=== PATIENT | male | born 1975 | race Two or more races ===

== ENCOUNTER 2022-05-12 18:42 | Emergency (ER) | payer OTHER ==
[2022-05-12 18:54] VITALS: BP 138/79; PULSE 85; RESP 18; TEMP 98.1; BMI 25.8
[2022-05-12] MEDS ORDERED: ACETAMINOPHEN 500 MG TABLET (FP) PO ONE (19:59)
[2022-05-12] MEDS ORDERED: ACETAMINOPHEN 325 MG TABLET (FP) ONE (20:06)
[2022-05-12 20:30] LABS: BASO % 0.8 % (0-2.0); HEMATOCRIT 43.3 % (35.4-49); HEMOGLOBIN 14.5 GM/dL (11.7-16.9); LYMPH % 27.3 % (8-40); MCH 29.6 pg (25.7-33.7); MCHC 33.4 g/dl (32.0-35.9); MEAN CELL VOLUME 88.5 fl (80-96); MEAN PLT VOLUME 8.3 fl (7.5-11.1); MONO % 10.1 % (3.8-10.2); NEUT % 59.8 % (42.8-82.8); PLATELET COUNT 290 10^3/uL (134-434); RBC 4.89 M/mm3 (4.00-5.60); RDW 13.3 % (11.9-15.9); WHITE BLOOD COUNT 7.2 K/mm3 (4.0-10.0)
[2022-05-12 20:58] LABS: CALCIUM 9.5 mg/dL (8.5-10.1)
[2022-05-12 20:59] LABS: BLOOD UREA NITROGEN 17.9 mg/dL (7-18)
[2022-05-12 21:01] LABS: CREATININE 0.9 mg/dL (0.55-1.3)
[2022-05-12 21:03] LABS: BILIRUBIN,TOTAL 0.3 mg/dL (0.2-1)
== END 2022-05-12 21:59 | disposition home or self-care (01) ==
LOC: JER 18:42
DX: R07.9 Chest pain, unspecified (principal)
CPT/HCPCS: 36415; 71046-TC-FY; 80053; 83690; 84484; 85025; 93005; 93010; 99285-25

== ENCOUNTER 2022-10-09 21:19 | Emergency (ER) | payer OTHER ==
[2022-10-09 21:25] VITALS: BP 114/79; PULSE 90; RESP 18; TEMP 98.4; BMI 25.8
[2022-10-09] MEDS ORDERED: ACETAMINOPHEN 325 MG TABLET (FP) PO ONE (22:13)
[2022-10-09] MEDS ORDERED: ACETAMINOPHEN 325 MG TABLET (FP) ONE (22:35)
== END 2022-10-09 23:28 | disposition home or self-care (01) ==
LOC: JER 21:19
DX: S89.82XA Other specified injuries of left lower leg, initial encounter (principal); M25.562 Pain in left knee; X50.3XXA Overexertion from repetitive movements, initial encounter; Y93.75 Activity, martial arts
CPT/HCPCS: 73564-TC-LT-FY; 99282-25

== ENCOUNTER 2023-06-09 21:15 | Emergency (ER) | payer OTHER ==
[2023-06-09 21:27] VITALS: BP 116/75; PULSE 71; RESP 18; TEMP 98.1; BMI 26.6
== END 2023-06-09 22:20 | disposition home or self-care (01) ==
LOC: JER 21:15
DX: R10.9 Unspecified abdominal pain (principal); R11.2 Nausea with vomiting, unspecified
CPT/HCPCS: 99281-25